=== PATIENT | female | born 1980 | race Caucasian/White ===

== ENCOUNTER 2019-06-08 21:26 | Inpatient (IN) | payer OTHER | END 2019-06-11 08:00 | disposition left against medical advice (07) | LOC: YASAS 21:26 → Y6N 06-09 11:08 ==

== ENCOUNTER 2019-06-29 10:16 | Inpatient (IN) | payer OTHER ==
[2019-06-29 11:12] VITALS: BMI 25.4
--- NOTE | 2019-06-29 12:03 | HP ---
COWS - Scale Resting Pulse: 0= OK 80 or Below Sweatin=Flushed/Facial Moisture Restless Observation: 3= Extraneous Movement Pupil Size: 1= Pupils >than Normal Bone or Joint Aches: 1= Mild Discomfort Runny Nose/ Eye Tearin= Nasal Congestion GI Upset > 30mins: 1= Stomach Cramp Tremor Observation: 1= Tremor [place], Not Seen Yawning Observation: 1= 1-2x During Session Anxiety or Irritability: 1=Feels Anxious/Irritable Goose Flesh Skin: 3=Piloerection COWS Score: 15 CIWA Score Nausea/Vomitin-Mild Nausea/No Vomiting Muscle Tremors: 1-None Visible, but [place] Anxiety: 3 Agitation: 1-Slight > Activity Paroxysmal Sweats: 2 Orientation: 0-Oriented Tacttile Disturbances: 1-Very Mild Itch/Numbness Auditory Disturbances: 1-Very Mild Visual Disturbances: 1-Very Mild Sensitivity Headache: 2-Mild CIWA-Ar Total Score: 13 - Admission Criteria OASAS Guidelines: Admission for Medically Managed Detox: Requires at least one of the followin. CIWA greater than 12 2. Seizures within the past 24 hours 3. Delirium tremens within the past 24 hours 4. Hallucinations within the past 24 hours 5. Acute intervention needed for co occurring medical disorder 6. Acute intervention needed for co occurring psychiatric disorder 7. Severe withdrawal that cannot be handled at a lower level of care (continued vomiting, continued diarrhea, abnormal vital signs) requiring intravenous medication and/or fluids 8. Admitting History and Physical - Admission Chief Complaint: WITHDRAWAL SYMPTOMS History of Present Illness: 39 Y.O. WOMAN WITH A 3 YEAR HISTORY OF OPIATE DEPENDENCE AND EXTENSIVE HISTORY OF ALCOHOL DEPENDENCE IS HERE SEEKING DETOX SERVICES. SHE WAS LAST HERE ON 06/11; PT. LEFT AMA AFTER 4 DAYS. History Source: Patient Limitations to Obtaining History: No Limitations - Past Medical History ADMINISTRATIVE RESIDENT: No: Alzheimer's, CVA, Dementia, Migraine, Multiple Sclerosis, Peripheral Neuropathy, Parkinson's, Seizure, Syncope, TIA, Vertigo, Other Cardiovascular: No: AFIB, Aneurysm, Aortic Insufficiency, Aortic Stenosis, CAD, CHF, Deep Vein Thrombosis, HTN, Hyperlipdemia, AR, Mitral Insufficiency, Mitral Stenosis, Murmur, Pulmonary Hypertension, Other Pulmonary: Yes: Sleep Apnea (RESOLOVED AFTER HAVING BARIATRIC SURGERY AND LOSING 270+LBS.). No: Asthma, Bronchitis, Cancer, COPD, O2 Dependent, Pneumonia , Previously Intubated, Pulmonary Embolus, Pulmonary Fibrosis, Other Gastrointestinal: No: Ascites, Cancer, Constipation, Crohn's Disease, Diverticulitis, Diverticulosis, Esophageal Varices, Gastritis, GERD, GI Bleed, Hemorrhoids, Hiatal Hernia, Inflamatory Bowel Disease, Irritable Bowel Disease, Pancreatitis, Peptic Ulcer Disease, Ulcerative Colitis, Other Hepatobiliary: No: Cirrhosis, Cholelithiasis, Cholecystitis, Choledocholithiasis , Hepatitis A, Hepatitis B, Hepatitis C, Other Renal/: No: Renal Failure, Renal Inusuff, BPH, Cancer, Hematuria, Hemodialysis , Neurogenic Bladder, Renal Calculi, UTI, Other ...LMP: 05/30/19 ...: No ...: 2 ...Para: 2 Heme/Onc: Yes: Anemia (ALLIE) Infectious Disease: No: AIDS, C-Diff, Herpes Zoster, HIV, MRSA, STD's, Tuberculosis, VREF, Other Psych: Yes: Anxiety, Bipolar (TAKES PROZAC, WELLBUTRIN, GABAPENTIN). No: Addictions, Depression, Panic, Psychosis, Schizophrenia, Other Musculoskeletal: No: Bursitis, Chronic low back pain, Hemiparesis, Hemiplegia, Osteoarthritis, Paraplegia, Other Rheumatology: No: Fibromyalgia, Gout, Lupus, Rheumatoid Arthritis, Sarcoidosis, Vasculitis, Other ENT: No: Allergic Rhinitis, Sinusitis, Other Endocrine: No: [place]'s Disease, Playas's Disease, Diabetes Insipidus, Diabetes Mellitus, Hyperparathyroidism, Hyperthyroidism, Hypothyroidism, Osteopenia, SIADH, Other Dermatology: No: Basal Cell, Cellulitis, Eczema, Melanoma, Psoriasis, Squamous Cell, Other - Past Surgical History Past Surgical History: Yes: Bariatric Surgery (2015) Additional Past Surgical History: RIGHT ARM RX REPAIR-2006 - Advance Directives Advance Directives: No: Living Will, Health Care Proxy, DNR, Organ Donor, Tissue Donor, MOLST - Smoking History Smoking history: Current every day smoker Have you smoked in the past 12 months: Yes Aproximately how many cigarettes per day: 10 - Alcohol/Substance Use Hx Alcohol Use: Yes History of Substance Use: reports: Heroin Date of Last Use: 06/29/19 - Social History Usual Living Arrangement: Yes: Alone Do you think of yourself as: Straight/Heterosexual ADL: Independent Occupation: UNEMPLOYED History of Recent Travel: No Admission ROS [facility] - [facility] Chief Complaint: WITHDRAWAL SYMPTOMS Allergies/Adverse Reactions: Allergies Allergy/AdvReac Type Severity Reaction Status Date / Time No Known Allergies Allergy Verified 06/08/19 22:01 History of Present Illness: 39 Y.O. WOMAN WITH A 3 YEAR HISTORY OF OPIATE DEPENDENCE AND EXTENSIVE HISTORY OF ALCOHOL DEPENDENCE IS HERE SEEKING DETOX SERVICES. SHE WAS LAST HERE ON 06/11; PT. LEFT AMA AFTER 4 DAYS. Exam Limitations: No Limitations - Ebola screening Have you traveled outside of the country in the last 21 days: No (N) Have you had contact with anyone from an Ebola affected area: No Do you have a fever: No - Review of Systems Constitutional: Chills, Loss of Appetite, Changes in sleep EENT: reports: Blurred Vision, Tearing, Nose Congestion Respiratory: reports: No Symptoms reported Cardiac: reports: No Symptoms Reported GI: reports: Abdominal cramping : reports: No Symptoms Reported Musculoskeletal: reports: No Symptoms Reported Integumentary: reports: No Symptoms Reported Neuro: reports: Tremors Endocrine: reports: No Symptoms Reported Hematology: reports: Anemia Psychiatric: reports: Orientated x3, Anxious, Depressed, other (Bipolar) Other Systems: Reviewed and Negative Patient History - Patient Medical History Hx Anemia: No Hx Asthma: No Hx Chronic Obstructive Pulmonary Disease (COPD): No Hx Cancer: No Hx Cardiac Disorders: No Hx Congestive Heart Failure: No Hx Hypertension: No Hx Hypercholesterolemia: No Hx Pacemaker: No HX Cerebrovascular Accident: No Hx Seizures: No Hx Dementia: No Hx Diabetes: No Hx Gastrointestinal Disorders: No Hx Liver Disease: No Hx Genitourinary Disorders: No Hx Sexually Transmitted Disorders: No Hx Renal Disease (ESRD): No Hx Thyroid Disease: No Hx Human Immunodeficiency Virus (HIV): No (Negative) Hx Hepatitis C: No Hx Depression: Yes Hx Suicide Attempt: No (Denies suicidal ideation at this time) Hx Bipolar Disorder: Yes (Wellbutrin, Zoloft, Klonopin, Gabapentin ) Hx Schizophrenia: No - Patient Surgical History Past Surgical History: Yes Hx Neurologic Surgery: No Hx Cataract Extraction: No Hx Cardiac Surgery: No Hx Lung Surgery: No Hx Breast Surgery: No Hx Breast Biopsy: No Hx Abdominal Surgery: No Hx Appendectomy: No Hx Cholecystectomy: No Hx Genitourinary Surgery: No Hx Section: No Hx Orthopedic Surgery: Yes (Right arm fx repair ) Hx Hysterectomy: No Other Surgical History: sleeve surgery 2014 Anesthesia Reaction: No - PPD History Previous Implant?: Yes Implanted On Prior [facility] Admission?: Yes Date: 06/11/19 PPD to be Administered?: Yes - Reproductive History Patient is a Female of Child Bearing Age (11 -55 yrs old): Yes Last Menstrual Period: 05/30/19 Patient : No - Smoking Cessation Smoking history: Current every day smoker Have you smoked in the past 12 months: Yes Aproximately how many cigarettes per day: 10 Hx Chewing Tobacco Use: No Initiated information on smoking cessation: Yes 'Breaking Loose' booklet given: 06/29/19 - Substance & Tx. History Hx Alcohol Use: Yes Hx Substance Use: Yes Substance Use Type: Alcohol, Heroin Hx Substance Use Treatment: Yes (Detox: 05/2019) - Substances abused Heroin Substance route: Inhalation Frequency: Daily Amount used: 10 bags Age of first use: 37 Date of last use: 06/29/19 Alcohol Substance route: Oral Frequency: 3-6 times per week Amount used: 1 pt of Rum Age of first use: 21 Date of last use: 06/26/19 Admission Physical Exam [facility] - Vital Signs Vital Signs: Vital Signs - 24 hr 06/29/19 10:46 Temperature 98.2 F Pulse Rate 62 Respiratory 18 Rate Blood Pressure 136/88 - Physical General Appearance: Yes: Sweating, Anxious HEENTM: Yes: Hearing grossly Normal, Normocephalic, Normal Voice Respiratory: Yes: Chest Non-Tender, Lungs Clear, Normal Breath Sounds, No Respiratory Distress, No Accessory Muscle Use Neck: Yes: Within Normal Limits Breast: Yes: Breast Exam Deferred Cardiology: Yes: Regular Rhythm, Regular Rate Abdominal: Yes: Within Normal Limits Genitourinary: Yes: Other (NO COMPLAINTS REPORTED) Musculoskeletal: Yes: Within Normal Limits Extremities: Yes: Normal Capillary Refill, Normal Inspection, Normal Range of Motion, Non-Tender Neurological: Yes: Alert, Normal Mood/Affect, Normal Response Integumentary: Yes: Normal Color, Dry, Warm Lymphatic: Yes: Within Normal Limits - Diagnostic (1) Alcohol dependence with intoxication, uncomplicated Current Visit: Yes Status: Chronic (2) Opioid dependence, uncomplicated Current Visit: Yes Status: Chronic (3) ALLIE (iron deficiency anemia) Current Visit: Yes Status: Chronic (4) Nicotine dependence Current Visit: Yes Status: Chronic Cleared for Admission [facility] - Detox or Rehab [facility] Level of Care: Medically Managed Detox Regimen/Protocol: Methadone/Librium Breathalyzer - Breathalyzer Breathalyzer: 0 Urine Drug Screen - Test Device Lot number: [id number] Expiration date: 02/21/21 - Control Is test valid?: Yes - Results Drug screen NEGATIVE: No Urine drug screen results: THC-Marijuana, LANIE-Cocaine, MOP-Opiates, OXY- Oxycodone, BZO-Benzodiazepines Inpatient Rehab Admission - Rehab Decision to Admit Inpatient rehab admission?: No
[2019-06-29] MEDS ORDERED: ACETAMINOPHEN 325 MG TABLET (FP) PO PRN ×2 (12:21)
[2019-06-29] MEDS ORDERED: MENTHOL/PHENOL 1 EACH UD MM PRN (12:21)
[2019-06-29] MEDS ORDERED: MELATONIN 5 MG TABLETS PO PRN (12:21)
[2019-06-29] MEDS ORDERED: NICOTINE POLACRILEX 2 MG GUM BUC PRN (12:21)
[2019-06-29] MEDS ORDERED: cloNIDine HCL 0.1 MG TABLET PO PRN (12:21)
[2019-06-29] MEDS ORDERED: METHADONE HCL 10 MG TABLET (FOR DETOX USE ONLY) PO ONE (12:21)
[2019-06-29] MEDS ORDERED: MAGNESIUM CITRATE 300 ML BOTTLE PO PRN (12:21)
[2019-06-29] MEDS ORDERED: BISMUTH SUBSALICYLATE 524 MG/30 ML UD PO PRN (12:21)
[2019-06-29] MEDS ORDERED: hydrOXYzine PAMOATE 25 MG CAPSULE (FP) PO PRN (12:21)
[2019-06-29] MEDS ORDERED: MAG HYDROX/AL HYDROX/SIMETH 30 ML UNIT-DOSE CUP PO PRN (12:21)
[2019-06-29] MEDS ORDERED: MAGNESIUM HYDROX 2400MG/30ML ORAL SUSPENSION 30 ML CUP PO PRN (12:21)
[2019-06-29] MEDS: chlordiazePOXIDE HCL 25 MG CAPSULE PO SCH ×2 (13:13→22:30)
[2019-06-29] MEDS: GABAPENTIN 300 MG CAPSULE (FP) PO SCH ×2 (13:13→22:30)
[2019-06-29] MEDS: METHOCARBAMOL 500 MG TABLET PO PRN (17:14)
[2019-06-29] MEDS: THIAMINE HCL 100 MG TABLET (FP) PO SCH (22:30)
[2019-06-29] MEDS: SUVOREXANT 10 MG TABLET PO PRN (22:31)
[2019-06-30] MEDS: METHOCARBAMOL 500 MG TABLET PO PRN ×3 (06:20→22:07)
[2019-06-30] MEDS: IBUPROFEN 400 MG TABLET (FP) PO PRN (06:20)
[2019-06-30] MEDS: GABAPENTIN 300 MG CAPSULE (FP) PO SCH ×3 (06:20→22:06)
[2019-06-30] MEDS: chlordiazePOXIDE HCL 25 MG CAPSULE PO SCH ×3 (06:20→22:06)
[2019-06-30] MEDS ORDERED: METHADONE HCL 5 MG TABLET (FOR DETOX USE ONLY) ONE (08:54)
[2019-06-30] MEDS ORDERED: METHADONE HCL 10 MG TABLET (FOR DETOX USE ONLY) ONE (08:54)
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
[2019-06-30] MEDS ORDERED: METHADONE (DETOX) 20 MG, METHADONE (DETOX) 5 MG PO ONE (10:00)
[2019-06-30] MEDS: PRENATAL VITAMINS W/ FOLIC ACID TABLET (FP) PO SCH (10:05)
[2019-06-30] MEDS: NICOTINE 14 MG/24 HOURS TOPICAL PATCH TD SCH (10:06)
--- NOTE | 2019-06-30 10:27 | PN ---
[facility] CIWA - CIWA Score Nausea/Vomitin-Mild Nausea/No Vomiting Muscle Tremors: 3 Anxiety: 3 Agitation: 2 Paroxysmal Sweats: 2 Orientation: 0-Oriented Tacttile Disturbances: 1-Very Mild Itch/Numbness Auditory Disturbances: 0-None Visual Disturbances: 0-None Headache: 0-None Present CIWA-Ar Total Score: 12 [facility] COWS - Scale Resting Pulse: 0= AR 80 or Below Sweatin= Chills/Flushing Restless Observation: 0= Sits Still Pupil Size: 0= Normal to Room Light Bone or Joint Aches: 1= Mild Discomfort Runny Nose/ Eye Tearin= Nasal Congestion GI Upset > 30mins: 2= Nausea/Diarrhea (no diarrhea) Tremor Observation of Outstretched Hands: 2= Slight Tremor Visible Yawning Observation: 1= 1-2x During Session Anxiety or Irritability: 2=Irritable/Anxious Goose Flesh Skin: 0=Smooth Skin COWS Score: 10 [facility] Progress Note (SOAP) Subjective: 39 years old female admitted on 06/29/19 for alcohol and opiate withdrawal sx management patient discharged on 06/11/19 from for alcohol and opiate withdrawal sx management patient request klonopine prescription for anxiety seen by psychiatrist treated with wellbutrin seroquel and vistaril patient requests valium and klonopin for anxiety discuss risks of fatality mixed opiate with benzo Objective: 06/30/19 10:34 Vital Signs Temperature 96.7 F L 06/30/19 09:34 Pulse Rate 64 06/30/19 09:34 Respiratory Rate 17 06/30/19 09:34 Blood Pressure 126/88 06/30/19 09:34 O2 Sat by Pulse Oximetry (%) 06/30/19 10:34 lab pending Assessment: 06/30/19 10:34 alcohol with opiate withdrawal sx Plan: continue librium and methadone detox regimen patient is considering valium instead of librium waiting for decision
[2019-06-30] MEDS: FLUoxetine HCL 20 MG CAPSULE (FP) PO SCH (10:54)
[2019-06-30 11:23] LABS: ALBUMIN 3.8 g/dl (3.4-5.0); BILIRUBIN,TOTAL 0.5 mg/dL (0.2-1); BLOOD UREA NITROGEN 11.2 mg/dL (7-18); CALCIUM 9.4 mg/dL (8.5-10.1); CREATININE 0.8 mg/dL (0.55-1.3); POTASSIUM 4.5 mmol/L (3.5-5.1); TOT PROT 7.2 g/dl (6.4-8.2)
[2019-06-30 11:28] LABS: HEMATOCRIT 40.2 % (32.4-45.2); HEMOGLOBIN 13.3 GM/dL (10.7-15.3); MCH 30.5 pg (25.7-33.7); MCHC 33.1 g/dl (32.0-36.0); PLATELET COUNT 372 K/MM3 (134-434); RBC 4.37 M/mm3 (3.60-5.2); RDW 13.9 % (11.6-15.6); WHITE BLOOD COUNT 4.9 K/mm3 (4.0-10.0)
[2019-06-30] MEDS: chlordiazePOXIDE HCL 10 MG CAPSULE PO PRN (17:02)
[2019-06-30] MEDS: hydrOXYzine PAMOATE 50 MG CAPSULE (FP) PO PRN (17:02)
[2019-06-30] MEDS: QUEtiapine FUMARATE 100 MG TABLET (FP) PO SCH (22:06)
[2019-06-30] MEDS: THIAMINE HCL 100 MG TABLET (FP) PO SCH (22:06)
[2019-06-30] MEDS: SUVOREXANT 10 MG TABLET PO PRN (22:07)
[2019-07-01] MEDS: hydrOXYzine PAMOATE 50 MG CAPSULE (FP) PO PRN ×2 (02:26→10:09)
[2019-07-01] MEDS: METHOCARBAMOL 500 MG TABLET PO PRN ×3 (05:52→21:56)
[2019-07-01] MEDS: IBUPROFEN 400 MG TABLET (FP) PO PRN ×2 (05:52→21:57)
[2019-07-01] MEDS: chlordiazePOXIDE 5 MG CAPSULE PO SCH ×2 (05:52→13:53)
[2019-07-01] MEDS: GABAPENTIN 300 MG CAPSULE (FP) PO SCH ×3 (05:53→21:53)
[2019-07-01] MEDS ORDERED: METHADONE HCL 10 MG TABLET (FOR DETOX USE ONLY) PO ONE (10:00)
[2019-07-01] MEDS: NICOTINE 14 MG/24 HOURS TOPICAL PATCH TD SCH (10:05)
[2019-07-01] MEDS: PRENATAL VITAMINS W/ FOLIC ACID TABLET (FP) PO SCH (10:05)
[2019-07-01] MEDS: FLUoxetine HCL 20 MG CAPSULE (FP) PO SCH (10:05)
[2019-07-01] MEDS: chlordiazePOXIDE HCL 10 MG CAPSULE PO PRN (10:09)
[2019-07-01] MEDS ORDERED: diazePAM 5 MG TABLET PO ONE (13:42)
[2019-07-01] MEDS ORDERED: TRIMETHOBENZAMIDE HCL 200MG/2ML INJ IM PRN (13:46)
--- NOTE | 2019-07-01 13:52 | PN ---
S CIWA - CIWA Score Nausea/Vomitin Muscle Tremors: 2 Anxiety: 6 Agitation: 0-Normal Activity Paroxysmal Sweats: 3 Orientation: 0-Oriented Tacttile Disturbances: 2-Mild Itch/Numbness/Burn (and Chills.) Auditory Disturbances: 0-None Visual Disturbances: 0-None Headache: 0-None Present CIWA-Ar Total Score: 16 [facility] COWS - Scale Resting Pulse: 0= OR 80 or Below Sweatin= Chills/Flushing Restless Observation: 0= Sits Still Pupil Size: 0= Normal to Room Light Bone or Joint Aches: 2= Severe Diffuse Aches Runny Nose/ Eye Tearin= None GI Upset > 30mins: 2= Nausea/Diarrhea Tremor Observation of Outstretched Hands: 2= Slight Tremor Visible Yawning Observation: 1= 1-2x During Session Anxiety or Irritability: 4=Extreme Anxiety Goose Flesh Skin: 0=Smooth Skin COWS Score: 12 [facility] Progress Note (SOAP) Subjective: Anxious (Severe), Diarrhea, Sweating, Body Aches, Hot / Cold Sensations, Nausea. Objective: PATIENT A & O X 3. IN NO ACUTE DISTRESS. 07/01/19 13:50 Vital Signs Temperature 98.0 F 07/01/19 09:15 Pulse Rate 54 L 07/01/19 09:15 Respiratory Rate 18 07/01/19 09:15 Blood Pressure 120/62 07/01/19 09:15 O2 Sat by Pulse Oximetry (%) Laboratory Tests 06/29/19 06/30/19 06/30/19 11:56 07:45 07:45 WBC 4.9 RBC 4.37 Hgb 13.3 Hct 40.2 MCV 92.0 MCH 30.5 MCHC 33.1 RDW 13.9 Plt Count 372 D MPV 9.0 Sodium 140 Potassium 4.5 Chloride 104 Carbon Dioxide 32 Anion Gap 5 L BUN 11.2 Creatinine 0.8 Est GFR (CKD-EPI)AfAm 106.88 Est GFR (CKD-EPI)NonAf 92.22 Random Glucose 113 H Calcium 9.4 Total Bilirubin 0.5 AST 12 L ALT 16 Alkaline Phosphatase 102 Total Protein 7.2 Albumin 3.8 POC Urine HCG, Qual Negative RPR Titer Hep C Ab Diagnostic 06/30/19 06/30/19 07:45 07:45 WBC RBC Hgb Hct MCV MCH MCHC RDW Plt Count MPV Sodium Potassium Chloride Carbon Dioxide Anion Gap BUN Creatinine Est GFR (CKD-EPI)AfAm Est GFR (CKD-EPI)NonAf Random Glucose Calcium Total Bilirubin AST ALT Alkaline Phosphatase Total Protein Albumin POC Urine HCG, Qual RPR Titer Nonreactive Hep C Ab Diagnostic 0.1 LABS NOTED. Assessment: 07/01/19 13:50 WITHDRAWAL SYMPTOMS. Plan: CONTINUE DETOX. INCREASE DAILY PO WATER INTAKE. PRN TIGAN IM FOR NASUEA. PRN PEPTO-BISMOL PO FOR DIARRHEA. PATIENT REPORTS THAT SHE DOES NOT BELIEVE THAT LIBRIUM MEDICATION DETOX REGIMEN IS WORKING WELL FOR HER. AT PATIENT'S REQUEST, LIBRIUM DETOX REGIMEN CHANGED TO VALIUM DETOX REGIMEN.
--- NOTE | 2019-07-01 14:16 | PN ---
[facility] Progress Note Note: Psychiatric nurse practitioner note: Belsomra renewed X3 days. Verbal consent given.
[2019-07-01] MEDS: diazePAM 5 MG TABLET PO PRN (18:07)
[2019-07-01] MEDS: QUEtiapine FUMARATE 100 MG TABLET (FP) PO SCH (21:53)
[2019-07-01] MEDS: THIAMINE HCL 100 MG TABLET (FP) PO SCH (21:53)
[2019-07-01] MEDS: diazePAM 5 MG TABLET PO SCH (21:54)
[2019-07-01] MEDS ORDERED: SUVOREXANT 10 MG TABLET PO PRN (22:00)
[2019-07-02] MEDS ORDERED: chlordiazePOXIDE HCL 10 MG CAPSULE PO PRN
[2019-07-02] MEDS: hydrOXYzine PAMOATE 50 MG CAPSULE (FP) PO PRN (01:06)
[2019-07-02] MEDS: diazePAM 5 MG TABLET PO PRN ×2 (01:06→08:41)
[2019-07-02] MEDS ORDERED: chlordiazePOXIDE HCL 10 MG CAPSULE PO SCH (05:00)
[2019-07-02] MEDS: GABAPENTIN 300 MG CAPSULE (FP) PO SCH (07:52)
[2019-07-02] MEDS: diazePAM 5 MG TABLET PO SCH (07:53)
[2019-07-02] MEDS ORDERED: METHADONE HCL 5 MG TABLET (FOR DETOX USE ONLY) ONE (08:21)
[2019-07-02] MEDS ORDERED: METHADONE HCL 10 MG TABLET (FOR DETOX USE ONLY) ONE (08:21)
[2019-07-02] MEDS: METHOCARBAMOL 500 MG TABLET PO PRN (08:41)
[2019-07-02] MEDS: IBUPROFEN 400 MG TABLET (FP) PO PRN (08:41)
--- NOTE | 2019-07-02 08:58 | DS ---
[facility] Detox Discharge Summary Admission Date: 06/29/19 Discharge Date: 07/02/19 - History Additional Comments: Patient medically stable, successfully completed detox and responded well to treatment. Patient to follow up [facility] PCP adn follow up with rehabilitation at [facility]. If worsening symptoms are present patient to follow up with PCP. - Physical Exam Results Vital Signs: Vital Signs Temperature 97.7 F 07/01/19 21:35 Pulse Rate 77 07/02/19 01:27 Respiratory Rate 18 07/02/19 03:30 Blood Pressure 117/72 07/01/19 21:35 O2 Sat by Pulse Oximetry (%) Pertinent Admission Physical Exam Findings: Patient medically stable. Follow up with primary care provider. Follow up with Rehab at [facility] 07/03/19. Patient declined prescriptions to be sent to her local pharmacy, reports has medications at home and will follow up with primary care provider. Laboratory Last Values WBC 4.9 K/mm3 (4.0-10.0) 06/30/19 07:45 RBC 4.37 M/mm3 (3.60-5.2) 06/30/19 07:45 Hgb 13.3 GM/dL (10.7-15.3) 06/30/19 07:45 Hct 40.2 % (32.4-45.2) 06/30/19 07:45 MCV 92.0 fl (80-96) 06/30/19 07:45 MCH 30.5 pg (25.7-33.7) 06/30/19 07:45 MCHC 33.1 g/dl (32.0-36.0) 06/30/19 07:45 RDW 13.9 % (11.6-15.6) 06/30/19 07:45 Plt Count 372 K/MM3 (134-434) D 06/30/19 07:45 MPV 9.0 fl (7.5-11.1) 06/30/19 07:45 Sodium 140 mmol/L (136-145) 06/30/19 07:45 Potassium 4.5 mmol/L (3.5-5.1) 06/30/19 07:45 Chloride 104 mmol/L (98-107) 06/30/19 07:45 Carbon Dioxide 32 mmol/L (21-32) 06/30/19 07:45 Anion Gap 5 MMOL/L (8-16) L 06/30/19 07:45 BUN 11.2 mg/dL (7-18) 06/30/19 07:45 Creatinine 0.8 mg/dL (0.55-1.3) 06/30/19 07:45 Est GFR (CKD-EPI)AfAm 106.88 06/30/19 07:45 Est GFR (CKD-EPI)NonAf 92.22 06/30/19 07:45 Random Glucose 113 mg/dL (74-106) H 06/30/19 07:45 Calcium 9.4 mg/dL (8.5-10.1) 06/30/19 07:45 Total Bilirubin 0.5 mg/dL (0.2-1) 06/30/19 07:45 AST 12 U/L (15-37) L 06/30/19 07:45 ALT 16 U/L (13-61) 06/30/19 07:45 Alkaline Phosphatase 102 U/L (45-117) 06/30/19 07:45 Total Protein 7.2 g/dl (6.4-8.2) 06/30/19 07:45 Albumin 3.8 g/dl (3.4-5.0) 06/30/19 07:45 POC Urine HCG, Qual Negative 06/29/19 11:56 RPR Titer Nonreactive (NONREACTIVE) 06/30/19 07:45 Hep C Ab Diagnostic 0.1 s/co ratio (0.0-0.9) 06/30/19 07:45 Patient AOx3 no acute distress EENT WNL No adventitious breath sounds full ROM no gait disturbance no edema or erythema - Treatment Hospital Course: Detox Protocol Followed, Detoxed Safely, Responded well, Discharged Condition Good, Rehab Referral Accepted Patient has Accepted a Rehab Referral to: [facility] - Medication Discharge Medications: Ambulatory Orders Bupropion HCl [Wellbutrin Xl] 300 mg PO DAILY 06/08/19 Fluoxetine HCl [Prozac] 40 mg PO DAILY 06/08/19 Gabapentin [Neurontin] 300 mg PO TID 06/08/19 Quetiapine Fumarate [Seroquel -] 150 mg PO HS 06/08/19 Zolpidem Tartrate [Ambien] 10 mg PO HS 06/08/19 Cyclobenzaprine HCl [Flexeril -] 10 mg PO TID PRN 06/29/19 Naloxone HCl [Narcan] 4 mg NS ASDIR PRN #1 spray 06/30/19 - AMA Did Patient Leave Against Medical Advice: No
[2019-07-02 09:09] VITALS: BP 106/67; PULSE 57; TEMP 97.1
[2019-07-02] MEDS ORDERED: METHADONE (DETOX) 10 MG, METHADONE (DETOX) 5 MG PO ONE (10:00)
[2019-07-02] MEDS: PRENATAL VITAMINS W/ FOLIC ACID TABLET (FP) PO SCH (10:21)
[2019-07-02] MEDS: FLUoxetine HCL 20 MG CAPSULE (FP) PO SCH (10:21)
[2019-07-02] MEDS: NICOTINE 14 MG/24 HOURS TOPICAL PATCH TD SCH (10:22)
[2019-07-03] MEDS ORDERED: chlordiazePOXIDE HCL 10 MG CAPSULE PO ONE (05:00)
[2019-07-03] MEDS ORDERED: diazePAM 5 MG TABLET PO SCH (06:00)
[2019-07-03] MEDS ORDERED: METHADONE HCL 10 MG TABLET (FOR DETOX USE ONLY) PO ONE (10:00)
[2019-07-04] MEDS ORDERED: METHADONE HCL 5 MG TABLET (FOR DETOX USE ONLY) PO ONE (06:00)
[2019-07-04] MEDS ORDERED: diazePAM 5 MG TABLET PO ONE (06:00)
== END 2019-07-02 11:36 | disposition home or self-care (01) | DRG 773 ==
LOC: YASAS 10:16 → Y3N 12:32
PROVIDERS: ADMIT Allergy & Immunology; ATTEND Allergy & Immunology
PROC: HZ2ZZZZ Detoxification Services for Substance Abuse Treatment (ICD-10-PCS; principal; 2019-06-29)
DX: F11.23 Opioid dependence with withdrawal (principal); F10.230 Alcohol dependence with withdrawal, uncomplicated; F17.210 Nicotine dependence, cigarettes, uncomplicated; F31.81 Bipolar II disorder; F43.10 Post-traumatic stress disorder, unspecified; F19.24 Other psychoactive substance dependence with psychoactive substance-induced mood disorder; F19.282 Other psychoactive substance dependence with psychoactive substance-induced sleep disorder; I10 Essential (primary) hypertension; D50.9 Iron deficiency anemia, unspecified; Z98.84 Bariatric surgery status; Z62.810 Personal history of physical and sexual abuse in childhood
CPT/HCPCS: 36415; 80053; 81025; 85027; 86593; 86803; J0735

== ENCOUNTER 2019-07-16 10:35 | Inpatient (IN) | payer OTHER ==
[2019-07-16 11:43] VITALS: BMI 25.9
--- NOTE | 2019-07-16 13:05 | HP ---
COWS - Scale Resting Pulse: 1= [place] 81-100 Sweatin=Flushed/Facial Moisture Restless Observation: 1= Difficult to Sit Still Pupil Size: 1= Pupils >than Normal Bone or Joint Aches: 1= Mild Discomfort Runny Nose/ Eye Tearin= Runny Nose/Eyes GI Upset > 30mins: 2= Nausea/Diarrhea Tremor Observation: 2= Slight Tremor Visible Yawning Observation: 1= 1-2x During Session Anxiety or Irritability: 2=Irritable/Anxious Goose Flesh Skin: 3=Piloerection COWS Score: 18 CIWA Score - Admission Criteria [facility] Guidelines: Admission for Medically Managed Detox: Requires at least one of the followin. CIWA greater than 12 2. Seizures within the past 24 hours 3. Delirium tremens within the past 24 hours 4. Hallucinations within the past 24 hours 5. Acute intervention needed for co occurring medical disorder 6. Acute intervention needed for co occurring psychiatric disorder 7. Severe withdrawal that cannot be handled at a lower level of care (continued vomiting, continued diarrhea, abnormal vital signs) requiring intravenous medication and/or fluids 8. Admitting History and Physical - Admission Chief Complaint: " I want to stop using heroin." History of Present Illness: 39 year old female with opioid dependence with withdrawals. Patient also has alcohol use disorder. She is using up to 1.5 bundles of heroin daily, intranasally. She last used this morning. She denies prior overdoses. She has attempted 2 detoxes in the past without success and wants to detox today. Marijuana she use every day about 1 blunt per day, last used yesterday. She smokes 3 ciggs per day since age of [age] years old. PMH:None Psych: Bipolar Disorder on wellbutrin and gabapentin Psurg: Right arm surgery due to an accident - has huge healed scar; gastric bypass surgery 04/2015. Patient is domiciled. She has poor support systems. - Past Medical History Pulmonary: Yes: Sleep Apnea (RESOLOVED AFTER HAVING BARIATRIC SURGERY AND LOSING 270+LBS.). No: Asthma, Bronchitis, Cancer, COPD, O2 Dependent, Pneumonia , Previously Intubated, Pulmonary Embolus, Pulmonary Fibrosis, Other ...LMP: 05/30/19 Heme/Onc: Yes: Anemia (ALLIE) Psych: Yes: Anxiety, Bipolar (TAKES PROZAC, WELLBUTRIN, GABAPENTIN). No: Addictions, Depression, Panic, Psychosis, Schizophrenia, Other Endocrine: No: Lares's Disease, Rajat's Disease, Diabetes Insipidus, Diabetes Mellitus, Hyperparathyroidism, Hyperthyroidism, Hypothyroidism, Osteopenia, SIADH, Other - Past Surgical History Past Surgical History: Yes: Bariatric Surgery (2014) - Advance Directives Advance Directives: No: Living Will, Health Care Proxy - Smoking History Smoking history: Current every day smoker Have you smoked in the past 12 months: Yes Aproximately how many cigarettes per day: 10 - Alcohol/Substance Use Hx Alcohol Use: Yes (but twice weekly) History of Substance Use: reports: Heroin Date of Last Use: 07/16/19 - Social History Usual Living Arrangement: Yes: Alone Do you think of yourself as: Straight/Heterosexual ADL: Independent Occupation: UNEMPLOYED History of Recent Travel: No Admission [facility] Chief Complaint: " I want to stop using heroin." Allergies/Adverse Reactions: Allergies Allergy/AdvReac Type Severity Reaction Status Date / Time No Known Allergies Allergy Verified 07/16/19 11:37 History of Present Illness: 39 year old female with opioid dependence with withdrawals. Patient also has alcohol use disorder. She is using up to 1.5 bundles of heroin daily, intranasally. She last used this morning. She denies prior overdoses. She has attempted 2 detoxes in the past without success and wants to detox today. Marijuana she use every day about 1 blunt per day, last used yesterday. She smokes 3 ciggs per day since age of [age] years old. PMH:None Psych: Bipolar Disorder on wellbutrin and gabapentin Psurg: Right arm surgery due to an accident - has huge healed scar; gastric bypass surgery 04/2015. Patient is domiciled. She has poor support systems. - Ebola screening Have you traveled outside of the country in the last 21 days: No Have you had contact with anyone from an Ebola affected area: No Have you been sick,other than usual withdrawal symptoms: No Do you have a fever: No - Review of Systems Constitutional: Chills, Diaphoresis, Unintentional Wgt. Loss Respiratory: reports: No Symptoms reported Cardiac: reports: No Symptoms Reported : reports: No Symptoms Reported Musculoskeletal: reports: Back Pain, Muscle Pain Integumentary: reports: No Symptoms Reported Neuro: reports: No Symptoms reported Endocrine: reports: No Symptoms Reported Hematology: reports: No Symptoms Reported Psychiatric: reports: Judgement Intact, Mood/Affect Appropiate, Orientated x3 Other Systems: Reviewed and Negative Patient History - Patient Medical History Hx Anemia: No Hx Asthma: No Hx Chronic Obstructive Pulmonary Disease (COPD): No Hx Cancer: No Hx Cardiac Disorders: No Hx Congestive Heart Failure: No Hx Hypertension: No Hx Hypercholesterolemia: No Hx Pacemaker: No HX Cerebrovascular Accident: No Hx Seizures: No Hx Dementia: No Hx Diabetes: No Hx Gastrointestinal Disorders: No Hx Liver Disease: No Hx Genitourinary Disorders: No Hx Sexually Transmitted Disorders: No Hx Renal Disease (ESRD): No Hx Thyroid Disease: No Hx Human Immunodeficiency Virus (HIV): No (Negative) Hx Hepatitis C: No Hx Depression: Yes Hx Suicide Attempt: No (Denies suicidal ideation at this time) Hx Bipolar Disorder: Yes (Wellbutrin, Zoloft, Klonopin, Gabapentin ) Hx Schizophrenia: No - Patient Surgical History Past Surgical History: Yes Hx Neurologic Surgery: No Hx Cataract Extraction: No Hx Cardiac Surgery: No Hx Lung Surgery: No Hx Breast Surgery: No Hx Breast Biopsy: No Hx Abdominal Surgery: No Hx Appendectomy: No Hx Cholecystectomy: No Hx Genitourinary Surgery: No Hx Section: No Hx Orthopedic Surgery: Yes (Right arm fx repair ) Hx Hysterectomy: No Other Surgical History: sleeve surgery 2014 Anesthesia Reaction: No - PPD History Date: 07/01/19 - Reproductive History Last Menstrual Period: 05/30/19 - Smoking Cessation Smoking history: Current every day smoker Have you smoked in the past 12 months: Yes Aproximately how many cigarettes per day: 10 Hx Chewing Tobacco Use: No Initiated information on smoking cessation: Yes 'Breaking Loose' booklet given: 07/16/19 - Substances abused Heroin Substance route: Inhalation Frequency: Daily Amount used: 1 -1/2 bundle Age of first use: 37 Date of last use: 07/16/19 Alcohol Substance route: Oral Frequency: 1-2 times per week Amount used: 1 pt of alberto Age of first use: 21 Date of last use: 07/13/19 Admission Physical Exam BHS - Vital Signs Vital Signs: Vital Signs - 24 hr 07/16/19 11:37 Temperature 98.6 F Pulse Rate 100 H Respiratory 18 Rate Blood Pressure 97/72 - Physical General Appearance: Yes: Moderate Distress HEENTM: Yes: EOMI, Hearing grossly Normal, Normal ENT Inspection, Normocephalic , Normal Voice, ALVARADO, Pharynx Normal, Tm's normal Respiratory: Yes: Chest Non-Tender, Lungs Clear, Normal Breath Sounds, No Respiratory Distress, No Accessory Muscle Use Neck: Yes: No masses,lesions,Nodules, Supple, Trachea in good position Breast: Yes: Breast Exam Deferred Cardiology: Yes: Regular Rhythm, Regular Rate, S1, S2 Abdominal: Yes: Non Tender, Soft, Increased Bowel Sounds Genitourinary: Yes: Within Normal Limits Back: Yes: Within Normal Limits, Normal Inspection Musculoskeletal: Yes: Within Normal Limits, full range of Motion, Gait Steady Extremities: Yes: Normal Capillary Refill, Normal Inspection, Normal Range of Motion, Non-Tender Neurological: Yes: notched blade loader II-XII NML intact, Fully Oriented, Alert, Motor Strength 5/5, Depressed Affect Integumentary: Yes: Normal Color, Warm Lymphatic: Yes: Within Normal Limits - Diagnostic (1) Opioid dependence, uncomplicated Current Visit: Yes Status: Acute (2) Depression Current Visit: Yes Status: Chronic (3) Marijuana dependence Current Visit: Yes Status: Chronic (4) Nicotine dependence Current Visit: Yes Status: Chronic Cleared for Admission [facility] - Detox or Rehab [facility] Level of Care: Medically Managed Detox Regimen/Protocol: Methadone Screened but not Admitted - Documentation of Visit Screened but not Admitted: No Breathalyzer - Breathalyzer Breathalyzer: 0 Urine Drug Screen - Test Device Lot number: [id number] Expiration date: 02/21/21 - Control Is test valid?: Yes - Results Drug screen NEGATIVE: No Urine drug screen results: THC-Marijuana, FEN-Fentanyl, MOP-Opiates, OXY- Oxycodone, MTD-Methadone, BZO-Benzodiazepines Inpatient Rehab Admission - Rehab Decision to Admit Inpatient rehab admission?: No
[2019-07-16] MEDS ORDERED: cloNIDine HCL 0.1 MG TABLET PO PRN (13:10)
[2019-07-16] MEDS ORDERED: ACETAMINOPHEN 325 MG TABLET (FP) PO PRN ×2 (13:10)
[2019-07-16] MEDS ORDERED: MENTHOL/PHENOL 1 EACH UD MM PRN (13:10)
[2019-07-16] MEDS ORDERED: MAGNESIUM CITRATE 300 ML BOTTLE PO PRN (13:10)
[2019-07-16] MEDS ORDERED: MELATONIN 5 MG TABLETS PO PRN (13:10)
[2019-07-16] MEDS ORDERED: METHOCARBAMOL 500 MG TABLET PO PRN (13:10)
[2019-07-16] MEDS ORDERED: BISMUTH SUBSALICYLATE 524 MG/30 ML UD PO PRN (13:10)
[2019-07-16] MEDS ORDERED: MAG HYDROX/AL HYDROX/SIMETH 30 ML UNIT-DOSE CUP PO PRN (13:10)
[2019-07-16] MEDS ORDERED: MAGNESIUM HYDROX 2400MG/30ML ORAL SUSPENSION 30 ML CUP PO PRN (13:10)
[2019-07-16] MEDS ORDERED: CYCLOBENZAPRINE HCL 10 MG TABLET (FP) PO PRN (13:13)
[2019-07-16] MEDS ORDERED: METHADONE HCL 10 MG TABLET (FOR DETOX USE ONLY) PO ONE (14:30)
[2019-07-16] MEDS: GABAPENTIN 300 MG CAPSULE (FP) PO SCH ×2 (15:01→22:15)
[2019-07-16] MEDS: IBUPROFEN 400 MG TABLET (FP) PO PRN (15:06)
[2019-07-16 17:20] LABS: HEMATOCRIT 37.7 % (32.4-45.2); HEMOGLOBIN 12.5 GM/dL (10.7-15.3); MCH 29.7 pg (25.7-33.7); MCHC 33.1 g/dl (32.0-36.0); MEAN CELL VOLUME 89.7 fl (80-96); PLATELET COUNT 380 K/MM3 (134-434); RDW 13.2 % (11.6-15.6); WHITE BLOOD COUNT 9.3 K/mm3 (4.0-10.0)
[2019-07-16 17:50] LABS: ALBUMIN 3.4 g/dl (3.4-5.0); BILIRUBIN,TOTAL 0.2 mg/dL (0.2-1); BLOOD UREA NITROGEN 17.4 mg/dL (7-18); CALCIUM 8.9 mg/dL (8.5-10.1); CREATININE 0.8 mg/dL (0.55-1.3); POTASSIUM 4.2 mmol/L (3.5-5.1)
[2019-07-16] MEDS: hydrOXYzine PAMOATE 25 MG CAPSULE (FP) PO PRN (19:54)
[2019-07-16] MEDS ORDERED: SUVOREXANT 5 MG TABLET PO PRN (22:00)
[2019-07-16] MEDS ORDERED: QUEtiapine FUMARATE 100 MG TABLET (FP) PO SCH (22:00)
[2019-07-16] MEDS: THIAMINE HCL 100 MG TABLET (FP) PO SCH (22:15)
[2019-07-16] MEDS: METHOCARBAMOL 500 MG TABLET PO PRN (22:15)
[2019-07-17] MEDS: hydrOXYzine PAMOATE 25 MG CAPSULE (FP) PO PRN ×2 (01:20→17:59)
[2019-07-17] MEDS: GABAPENTIN 300 MG CAPSULE (FP) PO SCH ×3 (05:14→22:14)
[2019-07-17] MEDS ORDERED: METHADONE HCL 5 MG TABLET (FOR DETOX USE ONLY) ONE (09:14)
[2019-07-17] MEDS ORDERED: METHADONE HCL 10 MG TABLET (FOR DETOX USE ONLY) ONE (09:14)
[2019-07-17] MEDS ORDERED: METHADONE (DETOX) 20 MG, METHADONE (DETOX) 5 MG PO ONE (10:00)
[2019-07-17] MEDS: FLUoxetine HCL 20 MG CAPSULE (FP) PO SCH (10:19)
[2019-07-17] MEDS: PRENATAL VITAMINS W/ FOLIC ACID TABLET (FP) PO SCH (10:19)
[2019-07-17] MEDS: NICOTINE 14 MG/24 HOURS TOPICAL PATCH TD SCH (10:20)
[2019-07-17] MEDS: METHOCARBAMOL 500 MG TABLET PO PRN ×2 (10:22→22:15)
[2019-07-17] MEDS ORDERED: NICOTINE POLACRILEX 2 MG GUM BUC PRN (10:31)
--- NOTE | 2019-07-17 10:39 | PN ---
S COWS - Scale Resting Pulse: 0= [place] 80 or Below Sweatin= Chills/Flushing Restless Observation: 0= Sits Still Pupil Size: 1= Pupils >than Normal Bone or Joint Aches: 2= Severe Diffuse Aches Runny Nose/ Eye Tearin= Nasal Congestion GI Upset > 30mins: 1= Stomach Cramp Tremor Observation of Outstretched Hands: 2= Slight Tremor Visible Yawning Observation: 1= 1-2x During Session Anxiety or Irritability: 2=Irritable/Anxious Goose Flesh Skin: 3=Piloerection COWS Score: 14 S Progress Note (SOAP) Subjective: doing well with methadone detox regimen request nicotine gum as nicotine placement therapy nicotine gum 2 mg ordered report long history of anxiety was seen by psychiatrist last detox initiate antianxiety medication worked well psychiatry referral Objective: 07/17/19 10:38 Vital Signs Temperature 97.1 F L 07/17/19 09:30 Pulse Rate 60 07/17/19 09:30 Respiratory Rate 18 07/17/19 09:30 Blood Pressure 116/69 07/17/19 09:30 O2 Sat by Pulse Oximetry (%) Laboratory Last Values WBC 9.3 K/mm3 (4.0-10.0) 07/16/19 13:50 RBC 4.20 M/mm3 (3.60-5.2) 07/16/19 13:50 Hgb 12.5 GM/dL (10.7-15.3) 07/16/19 13:50 Hct 37.7 % (32.4-45.2) 07/16/19 13:50 MCV 89.7 fl (80-96) 07/16/19 13:50 MCH 29.7 pg (25.7-33.7) 07/16/19 13:50 MCHC 33.1 g/dl (32.0-36.0) 07/16/19 13:50 RDW 13.2 % (11.6-15.6) 07/16/19 13:50 Plt Count 380 K/MM3 (134-434) 07/16/19 13:50 MPV 8.0 fl (7.5-11.1) D 07/16/19 13:50 Sodium 139 mmol/L (136-145) 07/16/19 13:50 Potassium 4.2 mmol/L (3.5-5.1) 07/16/19 13:50 Chloride 105 mmol/L (98-107) 07/16/19 13:50 Carbon Dioxide 26 mmol/L (21-32) 07/16/19 13:50 Anion Gap 8 MMOL/L (8-16) 07/16/19 13:50 BUN 17.4 mg/dL (7-18) 07/16/19 13:50 Creatinine 0.8 mg/dL (0.55-1.3) 07/16/19 13:50 Est GFR (CKD-EPI)AfAm 106.88 07/16/19 13:50 Est GFR (CKD-EPI)NonAf 92.22 07/16/19 13:50 Random Glucose 102 mg/dL (74-106) 07/16/19 13:50 Calcium 8.9 mg/dL (8.5-10.1) 07/16/19 13:50 Total Bilirubin 0.2 mg/dL (0.2-1) 07/16/19 13:50 AST 20 U/L (15-37) 07/16/19 13:50 ALT 17 U/L (13-61) 07/16/19 13:50 Alkaline Phosphatase 112 U/L (45-117) 07/16/19 13:50 Total Protein 7.0 g/dl (6.4-8.2) 07/16/19 13:50 Albumin 3.4 g/dl (3.4-5.0) 07/16/19 13:50 POC Urine HCG, Qual Negative 07/16/19 12:28 RPR Titer Nonreactive (NONREACTIVE) 07/16/19 13:50 lab noted Assessment: 07/17/19 10:39 opiate withdrawal sx Plan: continue methadone detox regimen
--- NOTE | 2019-07-17 12:42 | PN ---
S CIWA - CIWA Score Nausea/Vomitin-Mild Nausea/No Vomiting Muscle Tremors: 4-Moderate,w/Arms Extend Anxiety: 4-Mod. Anxious/Guarded Agitation: 3 Paroxysmal Sweats: 2 Orientation: 0-Oriented Tacttile Disturbances: 0-None Auditory Disturbances: 0-None Visual Disturbances: 0-None Headache: 0-None Present CIWA-Ar Total Score: 14 BHS Progress Note (SOAP) Subjective: patient report drinking alcohol daily last drank 07/15/19 ciwa 14 begin librium detox regimen
[2019-07-17] MEDS ORDERED: chlordiazePOXIDE HCL 10 MG CAPSULE PO PRN (12:44)
[2019-07-17] MEDS: chlordiazePOXIDE HCL 25 MG CAPSULE PO SCH ×2 (13:16→22:14)
[2019-07-17] MEDS: IBUPROFEN 400 MG TABLET (FP) PO PRN ×2 (13:18→22:17)
[2019-07-17] MEDS ORDERED: BISACODYL 5 MG TABLET.DR (FP) PO ONE (18:30)
[2019-07-17] MEDS: THIAMINE HCL 100 MG TABLET (FP) PO SCH (22:14)
[2019-07-18] MEDS: chlordiazePOXIDE HCL 25 MG CAPSULE PO SCH ×2 (05:57→13:12)
[2019-07-18] MEDS: GABAPENTIN 300 MG CAPSULE (FP) PO SCH ×2 (05:57→13:12)
[2019-07-18] MEDS ORDERED: METHADONE HCL 10 MG TABLET (FOR DETOX USE ONLY) PO ONE (10:00)
[2019-07-18] MEDS: PRENATAL VITAMINS W/ FOLIC ACID TABLET (FP) PO SCH (10:12)
[2019-07-18] MEDS: FLUoxetine HCL 20 MG CAPSULE (FP) PO SCH (10:12)
[2019-07-18] MEDS: METHOCARBAMOL 500 MG TABLET PO PRN (10:12)
[2019-07-18] MEDS: NICOTINE 14 MG/24 HOURS TOPICAL PATCH TD SCH (10:14)
[2019-07-18] MEDS: IBUPROFEN 400 MG TABLET (FP) PO PRN (10:35)
[2019-07-18] MEDS ORDERED: hydrOXYzine PAMOATE 50 MG CAPSULE (FP) PO PRN (11:58)
--- NOTE | 2019-07-18 12:21 | PN ---
S CIWA - CIWA Score Nausea/Vomitin-Mild Nausea/No Vomiting Muscle Tremors: 2 Anxiety: 2 Agitation: 2 Paroxysmal Sweats: No Perspiration Orientation: 0-Oriented Tacttile Disturbances: 1-Very Mild Itch/Numbness Auditory Disturbances: 0-None Visual Disturbances: 0-None Headache: 2-Mild CIWA-Ar Total Score: 10 BHS COWS - Scale Resting Pulse: 0= [place] 80 or Below Sweatin= No chills or Flushing Restless Observation: 1= Difficult to Sit Still Pupil Size: 1= Pupils >than Normal Bone or Joint Aches: 2= Severe Diffuse Aches Runny Nose/ Eye Tearin= Nasal Congestion GI Upset > 30mins: 1= Stomach Cramp Tremor Observation of Outstretched Hands: 2= Slight Tremor Visible Yawning Observation: 1= 1-2x During Session Anxiety or Irritability: 2=Irritable/Anxious Goose Flesh Skin: 0=Smooth Skin COWS Score: 11 S Progress Note (SOAP) Subjective: alert,irritable,anxious,interrupted sleep,tremor,pain in the body and back Objective: 07/18/19 12:18 Vital Signs Temperature 97.6 F 07/18/19 09:09 Pulse Rate 64 07/18/19 09:09 Respiratory Rate 18 07/18/19 09:09 Blood Pressure 94/62 07/18/19 09:09 O2 Sat by Pulse Oximetry (%) Laboratory Last Values WBC 9.3 K/mm3 (4.0-10.0) 07/16/19 13:50 RBC 4.20 M/mm3 (3.60-5.2) 07/16/19 13:50 Hgb 12.5 GM/dL (10.7-15.3) 07/16/19 13:50 Hct 37.7 % (32.4-45.2) 07/16/19 13:50 MCV 89.7 fl (80-96) 07/16/19 13:50 MCH 29.7 pg (25.7-33.7) 07/16/19 13:50 MCHC 33.1 g/dl (32.0-36.0) 07/16/19 13:50 RDW 13.2 % (11.6-15.6) 07/16/19 13:50 Plt Count 380 K/MM3 (134-434) 07/16/19 13:50 MPV 8.0 fl (7.5-11.1) D 07/16/19 13:50 Sodium 139 mmol/L (136-145) 07/16/19 13:50 Potassium 4.2 mmol/L (3.5-5.1) 07/16/19 13:50 Chloride 105 mmol/L (98-107) 07/16/19 13:50 Carbon Dioxide 26 mmol/L (21-32) 07/16/19 13:50 Anion Gap 8 MMOL/L (8-16) 07/16/19 13:50 BUN 17.4 mg/dL (7-18) 07/16/19 13:50 Creatinine 0.8 mg/dL (0.55-1.3) 07/16/19 13:50 Est GFR (CKD-EPI)AfAm 106.88 07/16/19 13:50 Est GFR (CKD-EPI)NonAf 92.22 07/16/19 13:50 Random Glucose 102 mg/dL (74-106) 07/16/19 13:50 Calcium 8.9 mg/dL (8.5-10.1) 07/16/19 13:50 Total Bilirubin 0.2 mg/dL (0.2-1) 07/16/19 13:50 AST 20 U/L (15-37) 07/16/19 13:50 ALT 17 U/L (13-61) 07/16/19 13:50 Alkaline Phosphatase 112 U/L (45-117) 07/16/19 13:50 Total Protein 7.0 g/dl (6.4-8.2) 07/16/19 13:50 Albumin 3.4 g/dl (3.4-5.0) 07/16/19 13:50 POC Urine HCG, Qual Negative 07/16/19 12:28 RPR Titer Nonreactive (NONREACTIVE) 07/16/19 13:50 Assessment: 07/18/19 12:20 withdrawal symptom Plan: continue detox methadone and librium regimen
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
[2019-07-18 15:33] VITALS: BP 134/90; PULSE 86; TEMP 100
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
--- NOTE | 2019-07-19 03:15 | DS ---
[facility] Detox Discharge Summary Admission Date: 07/16/19 Discharge Date: 07/18/19 - History Present History: Alcohol Dependence, Opioid Dependence Additional Comments: Patient seeking detox for ETOH and opioid use disorder. - Physical Exam Results Vital Signs: Vital Signs Temperature 100.0 F H 07/18/19 15:32 Pulse Rate 86 07/18/19 15:32 Respiratory Rate 18 07/18/19 15:32 Blood Pressure 134/90 07/18/19 15:32 O2 Sat by Pulse Oximetry (%) Pertinent Admission Physical Exam Findings: Patient was admitted w/ ETOH and opioid use withdrawal symptoms and placed on a librium and methadone detox. Laboratory Last Values WBC 9.3 K/mm3 (4.0-10.0) 07/16/19 13:50 RBC 4.20 M/mm3 (3.60-5.2) 07/16/19 13:50 Hgb 12.5 GM/dL (10.7-15.3) 07/16/19 13:50 Hct 37.7 % (32.4-45.2) 07/16/19 13:50 MCV 89.7 fl (80-96) 07/16/19 13:50 MCH 29.7 pg (25.7-33.7) 07/16/19 13:50 MCHC 33.1 g/dl (32.0-36.0) 07/16/19 13:50 RDW 13.2 % (11.6-15.6) 07/16/19 13:50 Plt Count 380 K/MM3 (134-434) 07/16/19 13:50 MPV 8.0 fl (7.5-11.1) D 07/16/19 13:50 Sodium 139 mmol/L (136-145) 07/16/19 13:50 Potassium 4.2 mmol/L (3.5-5.1) 07/16/19 13:50 Chloride 105 mmol/L (98-107) 07/16/19 13:50 Carbon Dioxide 26 mmol/L (21-32) 07/16/19 13:50 Anion Gap 8 MMOL/L (8-16) 07/16/19 13:50 BUN 17.4 mg/dL (7-18) 07/16/19 13:50 Creatinine 0.8 mg/dL (0.55-1.3) 07/16/19 13:50 Est GFR (CKD-EPI)AfAm 106.88 07/16/19 13:50 Est GFR (CKD-EPI)NonAf 92.22 07/16/19 13:50 Random Glucose 102 mg/dL (74-106) 07/16/19 13:50 Calcium 8.9 mg/dL (8.5-10.1) 07/16/19 13:50 Total Bilirubin 0.2 mg/dL (0.2-1) 07/16/19 13:50 AST 20 U/L (15-37) 07/16/19 13:50 ALT 17 U/L (13-61) 07/16/19 13:50 Alkaline Phosphatase 112 U/L (45-117) 07/16/19 13:50 Total Protein 7.0 g/dl (6.4-8.2) 07/16/19 13:50 Albumin 3.4 g/dl (3.4-5.0) 07/16/19 13:50 POC Urine HCG, Qual Negative 07/16/19 12:28 RPR Titer Nonreactive (NONREACTIVE) 07/16/19 13:50 Labs reviewed. - Treatment Hospital Course: Detox Protocol Followed, Discharged Condition Good - Medication Discharge Medications: Ambulatory Orders Bupropion HCl [Wellbutrin Xl] 300 mg PO DAILY 06/08/19 Fluoxetine HCl [Prozac] 40 mg PO DAILY 06/08/19 Gabapentin [Neurontin] 300 mg PO TID 06/08/19 Quetiapine Fumarate [Seroquel -] 100 mg PO HS 06/08/19 Zolpidem Tartrate [Ambien] 10 mg PO HS 06/08/19 Cyclobenzaprine HCl [Flexeril -] 10 mg PO TID PRN 06/29/19 - Diagnosis (1) Alcohol dependence with withdrawal, uncomplicated Status: Acute (2) Opioid dependence with withdrawal Status: Acute - AMA Did Patient Leave Against Medical Advice: No (Administrative Discharge. )
[2019-07-19] MEDS ORDERED: chlordiazePOXIDE 5 MG CAPSULE PO SCH (05:00)
[2019-07-19] MEDS ORDERED: METHADONE (DETOX) 10 MG, METHADONE (DETOX) 5 MG PO ONE (10:00)
[2019-07-20] MEDS ORDERED: chlordiazePOXIDE HCL 10 MG CAPSULE PO PRN
[2019-07-20] MEDS ORDERED: chlordiazePOXIDE HCL 10 MG CAPSULE PO SCH (05:00)
[2019-07-20] MEDS ORDERED: METHADONE HCL 10 MG TABLET (FOR DETOX USE ONLY) PO ONE (10:00)
[2019-07-21] MEDS ORDERED: chlordiazePOXIDE HCL 10 MG CAPSULE PO ONE (05:00)
[2019-07-21] MEDS ORDERED: METHADONE HCL 5 MG TABLET (FOR DETOX USE ONLY) PO ONE (06:00)
== END 2019-07-18 06:40 | disposition home or self-care (01) | DRG 773 ==
LOC: YASAS 10:35 → Y3N 14:16
PROVIDERS: ADMIT Allergy & Immunology; ATTEND Allergy & Immunology
PROC: HZ2ZZZZ Detoxification Services for Substance Abuse Treatment (ICD-10-PCS; principal; 2019-07-16)
DX: F11.23 Opioid dependence with withdrawal (principal); F10.230 Alcohol dependence with withdrawal, uncomplicated; F12.20 Cannabis dependence, uncomplicated; F17.210 Nicotine dependence, cigarettes, uncomplicated; F19.24 Other psychoactive substance dependence with psychoactive substance-induced mood disorder; F43.10 Post-traumatic stress disorder, unspecified; F91.8 Other conduct disorders; F31.9 Bipolar disorder, unspecified; I10 Essential (primary) hypertension; G47.00 Insomnia, unspecified; M54.2 Cervicalgia; R51 Headache; Z62.810 Personal history of physical and sexual abuse in childhood; Z98.84 Bariatric surgery status; Y04.0XXA Assault by unarmed brawl or fight, initial encounter; Y93.9 Activity, unspecified; Y92.239 Unspecified place in hospital as the place of occurrence of the external cause
CPT/HCPCS: 36415; 80053; 81025; 85027; 86593; J0735